=== PATIENT | female | born 1960 | race Caucasian/White ===

== ENCOUNTER → 2018-04-10 | Outpatient (CLI) | payer OTHER | LOC: M.ULTRA 06:37 | DX: E04.2 Nontoxic multinodular goiter (principal) ==

== ENCOUNTER → 2018-04-16 | Outpatient (CLI) | payer OTHER ==
--- NOTE | 2018-04-18 13:08 | PATH ---
[address] [address] PATHOLOGY RPT PROCEDURE Name: ANASTASIATUNG Room: [facility]#: [id number] Admission: 04/16/18 Date of : 62 Discharge: Report #: [id number] Path Case #: [id number] Note [facility] Accession Number: [id number] TESTS RESULT FLAG UNITS REF RANGE LAB Clinician Provided Cytology Information No. of containers..01 Other (Miscellaneous) Source: LEFT THYROID DIAGNOSIS: LEFT THYROID NEGATIVE FOR MALIGNANT CELLS. [place] CATEGORY II. SPECIMEN CONSISTS OF BENIGN FOLLICULAR CELLS, HEMOSIDERIN-LADEN MACROPHAGES, SCANT COLLOID AND BLOOD. THE PATTERN IS CONSISTENT WITH ADENOMATOID NODULE. SEE COMMENT. COMMENT: A PROPERLY-CONTOLLED TTF-1 STAIN PERFORMED ON THE CELL BLOCK, JAMES HIGHLIGHTS THE THYROID FOLLICULAR CELLS. Pathologist ICD10: 02 E04.1 Signed out by: 02 Amilcar Mcnally MD, Pathologist NPI- [id number] Performed by: 01 Vangie Pena, Emergency Room Clinician ([facility]) Gross description: 01 15ML, RED, CLEAR /LCS FLAG LEGEND: L-Low Normal,H-High Normal,LL-Alert Low,HH-Alert High <-Panic Low,>-Panic High,A-Abnormal,AA-Critical Abnormal Performed at: [address] [place] [address] Damon Roman MD, [address] [address] Amilcar Mcnally MD, Performed at: [address], [place], [place] [id number] MD Damon Roman MD Phone: [phone]
== END | disposition home or self-care (01) ==
LOC: M.ULTRA 07:47
DX: E04.1 Nontoxic single thyroid nodule (principal); Z91.018 Allergy to other foods

== ENCOUNTER → 2019-06-10 | Outpatient (CLI) | payer OTHER | LOC: M.RAD 09:40 | DX: Z12.31 Encounter for screening mammogram for malignant neoplasm of breast (principal) ==